=== PATIENT | female | born 1990 ===

== ENCOUNTER 2024-10-24 07:30 | Inpatient (IN) | payer OTHER ==
[~2024-10-24] VITALS: Ht 165.1 cm; Wt 2.7 kg
[2024-10-24 07:56] VITALS: BP 118/78
[2024-10-24] MEDS ORDERED: LABETALOL HCL100 MG PO (08:30)
[2024-10-24] MEDS ORDERED: PRENATE ELITE1 EAC2 PO (08:31)
[2024-10-24] MEDS ORDERED: VAZALORE81 MG PO (08:32)
[2024-10-24] MEDS ORDERED: NASAL MIST126 ML (08:32)
[2024-10-24 08:58] LABS: BASO % 0.4 % (0.1-1.2); EOS # 0.06 (0.04-0.54); EOS % 0.6 % (0.7-7.0); HEMATOCRIT 35.8 % (34.1-44.9); HEMOGLOBIN 11.7 g/dL (11.2-15.7); LYMPH # 1.61 (1.18-3.74); LYMPH % 16.8 % (19.3-53.1); MEAN CORPUSCULAR HEMOGLOBIN 26.5 pg (25.6-32.2); MONO % 8.3 % (4.7-12.5); NEUT # 7.04 (1.56-6.13); NEUT % 73.3 % (34.0-71.1); PLATELET COUNT 333 K/uL (163-369); RED BLOOD COUNT 4.42 M/uL (3.93-5.22); RED CELL DISTRIBUTION WIDTH 14.6 % (11.6-14.4)
[2024-10-24 08:59] LABS: URINE APPEARANCE Clear; URINE BILIRRUBIN Negative (NEGATIVE); URINE BLOOD Negative; URINE COLOR Yellow; URINE GLUCOSE Negative (NEGATIVE); URINE KETONE Negative (NEGATIVE); URINE LEUKOCYTE Moderate; URINE NITRATE Negative; URINE PROTEIN Negative (NEGATIVE)
[2024-10-24 09:02] LABS: URINE BACTERIA 975.3 uL (0.0-1933); URINE EPITHELIAL CELLS 33.8 uL (0.0-38.8); URINE RBC 38.7 uL (0.0-20.8); URINE WBC 182.8 uL (0.0-23.2)
[2024-10-24 09:22] LABS: INR < 0.93; PARTIAL THROMBOPLASTIN TIME 28.1 SECONDS (22.0-34.0); PROTHROMBIN TIME 10.2 SECONDS (9.0-11.5)
[2024-10-24] MEDS ORDERED: SODIUM CHLORIDE 0.45 % 1,000 ML IV SCH (09:45)
[2024-10-24 10:00] LABS: ALBUMIN 2.5 gm/dL (3.4-5.0); BILIRUBIN TOTAL 0.29 mg/dL (0.3-1.2); CALCIUM 8.8 mg/dL (8.5-10.1); CREATININE SERUM 0.54 mg/dL (0.55-1.02); GFR 130.02; GLOBULINA 3.6 G/DL (2.4-3.5); POTASSIUM 4.14 mEq/L (3.5-5.1); TOTAL PROTEIN 6.1 gm/dL (6.4-8.2)
[2024-10-24] MEDS ORDERED: CEFOXITIN SODIUM IV SCH (10:00)
[2024-10-24] MEDS ORDERED: SODIUM CHLORIDE 0.9% IV SCH (10:00)
[2024-10-24 11:13] VITALS: BP 86/56; O2SAT 100
[2024-10-24 15:21] VITALS: BP 102/67
[2024-10-24] MEDS ORDERED: ERYTHROMYCIN BASE OPHT 1GM EACH TUBE OP ONE (16:36)
[2024-10-24] MEDS ORDERED: OXYTOCIN 10 UNITS/ML VIAL ONE (16:36)
[2024-10-24] MEDS ORDERED: CEFOXITIN SODIUM 2,000 MG VIAL IV ONE (16:58)
[2024-10-24] MEDS ORDERED: KETOROLAC TROMETHAMINE 60 MG VIAL IM STA (19:24)
[2024-10-24] MEDS ORDERED: OXYTOCIN 1,000 ML IV SCH (19:30)
[2024-10-24] MEDS ORDERED: CHLORHEXIDINE GLUCONATE 120 ML BOTTLE TOP ONE (19:30)
[2024-10-24] MEDS ORDERED: RINGERS SOLUTION,LACTATED 1,000 ML IV SCH (19:30)
[2024-10-24] MEDS ORDERED: MORPHINE SULFATE 4 MG/ML VIAL IV ONE (19:45)
[2024-10-24] MEDS ORDERED: KETOROLAC TROMETHAMINE 60 MG VIAL IM ONE (21:12)
[2024-10-25] MEDS ORDERED: OXYTOCIN 10 UNITS/ML VIAL ONE (00:12)
[2024-10-25 00:19] LABS: BASO % 0.2 % (0.1-1.2); EOS # 0.03 (0.04-0.54); EOS % 0.2 % (0.7-7.0); HEMATOCRIT 33.1 % (34.1-44.9); LYMPH % 11.3 % (19.3-53.1); MEAN CORPUSCULAR HEMOGLOBIN 26.6 pg (25.6-32.2); MONO # 0.74 (0.24-0.82); MONO % 5.2 % (4.7-12.5); NEUT # 11.66 (1.56-6.13); NEUT % 82.7 % (34.0-71.1); PLATELET COUNT 250 K/uL (163-369); RED BLOOD COUNT 4.03 M/uL (3.93-5.22); RED CELL DISTRIBUTION WIDTH 14.3 % (11.6-14.4)
[2024-10-25 00:36] LABS: HEMOGLOBIN 10.7 g/dL (11.2-15.7)
[2024-10-25 01:03] VITALS: BP 140/80
[2024-10-25 08:18] VITALS: BP 137/82
[2024-10-25] MEDS ORDERED: ACETAMINOPHEN WITH CODEINE 1 UDTAB TABLET PO PRN (10:45)
[2024-10-25] MEDS ORDERED: FF) RHO(D) IMMUNE GLOBULIN (POM) IM NR (11:30)
[2024-10-25 15:54] VITALS: BP 114/82
[2024-10-26 00:52] VITALS: BP 117/81
[2024-10-26 08:50] VITALS: BP 115/78
[2024-10-26 16:00] VITALS: BP 117/81
[2024-10-27 00:04] VITALS: BP 116/78
[2024-10-27] MEDS ORDERED: IBUPROFEN800 MG PO (07:59)
[2024-10-27 08:00] VITALS: BP 109/66
== END 2024-10-27 14:09 | disposition home or self-care (01) | DRG 787 ==
LOC: LDR 07:30 → OB/GYN 07:30 → O/R 16:59 → OB/GYN 19:40
PROVIDERS: ADMIT Obstetrics & Gynecology; ATTEND Obstetrics & Gynecology
PROC: 4A1HXCZ Monitoring of Products of Conception, Cardiac Rate, External Approach (ICD-10-PCS; 2024-10-24)
PROC: 10D00Z1 Extraction of Products of Conception, Low, Open Approach (ICD-10-PCS; principal; 2024-10-24 16:15)
DX: O32.8XX0 Maternal care for other malpresentation of fetus, not applicable or unspecified (principal); O10.02 Pre-existing essential hypertension complicating childbirth; Z3A.37 37 weeks gestation of pregnancy; Z37.0 Single live birth